=== PATIENT | female | born 1960 | race Caucasian/White ===

== ENCOUNTER → 2017-02-03 | Outpatient (CLI) | payer BC ==
--- NOTE | 2017-02-06 11:53 | MM ---
Reason for exam: screening (asymptomatic). Last mammogram was performed 1 year and 1 month ago. History: Patient is postmenopausal. Taking estrogen beginning at age 42. Taking progesterone beginning at age 42. Physical Findings: A clinical breast exam by your physician is recommended on an annual basis and results should be correlated with mammographic findings. MG Screening Mammo w CAD Bilateral CC and MLO view(s) were taken. Prior study comparison: December 24, 2015, bilateral MG screening mammo w CAD. September 17, 2014, mammogram, performed at [facility]. The breast tissue is extremely dense which could obscure a lesion on mammography. Finding #1: There is a 5 mm equal density mass in the subareolar position of the left breast. Finding #2: There are typically benign calcifications in both breasts, stable. ASSESSMENT: Incomplete: need additional imaging evaluation, BI-RAD 0 RECOMMENDATION: Ultrasound of the left breast. [facility] will attempt to contact patient to return for ultrasound.
== END | disposition home or self-care (01) ==
LOC: RADMAMWWP 11:14
PROVIDERS: ATTEND Family Medicine
DX: Z12.31 Encounter for screening mammogram for malignant neoplasm of breast (principal)

== ENCOUNTER → 2017-02-07 | Outpatient (CLI) | payer BC ==
--- NOTE | 2017-02-07 13:45 | USB ---
Reason for exam: additional evaluation requested from abnormal screening. History: Patient is postmenopausal. Taking estrogen beginning at age 42. Taking progesterone beginning at age 42. Physical Findings: Nurse did not find any significant physical abnormalities on exam. US Breast Workup LT Left breast ultrasound demonstrates a 0.4 x 0.5 x 0.4cm lesion too small to characterize at 12 o'clock. These results were verbally communicated with the patient and result sheet given to the patient on 02/07/17. ASSESSMENT: Probably benign, BI-RAD 3 RECOMMENDATION: Follow-up diagnostic mammogram and ultrasound of the left breast in 6 months.
== END | disposition home or self-care (01) ==
LOC: RADUSWWP 13:01
PROVIDERS: ATTEND Family Medicine
DX: R92.8 Other abnormal and inconclusive findings on diagnostic imaging of breast (principal)

== ENCOUNTER → 2017-08-11 | Outpatient (CLI) | payer BC ==
--- NOTE | 2017-08-11 11:18 | USB ---
Reason for exam: follow-up at short interval from prior study. History: Patient is postmenopausal. Taking estrogen beginning at age 42. Taking progesterone beginning at age 42. Physical Findings: Nurse did not find any significant physical abnormalities on exam. US Breast LT Left breast ultrasound includes all four quadrants, the retroareolar region and axilla. Finding demonstrates 0.4 x 0.5 x 0.5cm lesion too small to characterize at 12 o'clock, may be more cyst like current exam. These results were verbally communicated with the patient and result sheet given to the patient on 08/11/17. ASSESSMENT: Probably benign, BI-RAD 3 RECOMMENDATION: Ultrasound of the left breast in 6 months. Back on schedule. Return to routine screening mammogram schedule for both breasts.
== END | disposition home or self-care (01) ==
LOC: RADUSWWP 10:17
PROVIDERS: ATTEND Family Medicine
DX: R92.8 Other abnormal and inconclusive findings on diagnostic imaging of breast (principal)

== ENCOUNTER → 2017-11-13 | Outpatient (CLI) | payer BC ==
[~2017-11-13] MED LIST: SODIUM CHLORIDE 0.9% 500 ML in EMPTY BAG 1 BAG IV PRN; ZOLEDRONIC ACID 4 MG in SODIUM CHLORIDE 0.9% 100 ML IV NR; ZOLEDRONIC ACID 5 MG in SODIUM CHLORIDE 0.9% 100 ML IV ONE
[2017-11-13 08:24] VITALS: BP 114/64; PULSE 80; RESP 16; TEMP 98.7
== END | disposition home or self-care (01) ==
LOC: PROCWHC3 08:00
PROVIDERS: ATTEND Family Medicine
DX: M81.0 Age-related osteoporosis without current pathological fracture (principal); Z88.2 Allergy status to sulfonamides; Z88.5 Allergy status to narcotic agent; Z88.8 Allergy status to other drugs, medicaments and biological substances
CPT/HCPCS: 96365; J3489

== ENCOUNTER → 2018-04-27 | Outpatient (CLI) | payer BC ==
--- NOTE | 2018-04-27 10:38 | USB ---
Reason for exam: follow-up at short interval from prior study. History: Patient is postmenopausal. Taking estrogen beginning at age 42. Taking progesterone beginning at age 42. Physical Findings: Nurse did not find any significant physical abnormalities on exam. US Breast BILAT Right complete breast ultrasound includes all four quadrants, the retroareolar region and axilla. Finding demonstrates a 0.4 x 0.4 x 0.3cm oval, cystic lesion at 11 o'clock. Left complete breast ultrasound includes all four quadrants, the retroareolar region and axilla. Finding demonstrates a 0.4 x 0.3 x 0.5cm oval, mixed lesion at 12 o'clock. These results were verbally communicated with the patient and result sheet given to the patient on 04/27/18. ASSESSMENT: Probably benign, BI-RAD 3 Benign, BI-RAD 2 finding in the right breast. Probably benign, BI-RAD 3 finding in the left breast. RECOMMENDATION: Ultrasound of the left breast in 6 months.
== END | disposition home or self-care (01) ==
LOC: RADUSWWP 08:29
PROVIDERS: ATTEND Family Medicine
DX: N63.0 Unspecified lump in unspecified breast (principal)

== ENCOUNTER → 2018-10-01 | Outpatient (CLI) | payer BC ==
--- NOTE | 2018-10-01 10:20 | USB ---
Reason for exam: additional evaluation requested from abnormal screening. History: Patient is postmenopausal. Taking estrogen beginning at age 42. Taking progesterone beginning at age 42. Physical Findings: Nurse did not find any significant physical abnormalities on exam. US Breast BILAT Right complete breast ultrasound includes all four quadrants, the retroareolar region and axilla. Finding demonstrates a 0.5 x 0.3 x 0.2cm cystic lesion at 6 o'clock and a 0.5 x 0.5 x 0.3cm mixed, stable lesion at 11 o'clock. Left complete breast ultrasound includes all four quadrants, the retroareolar region and axilla. Finding demonstrates a 0.5 x 0.4 x 0.3cm mixed, stable lesion at 12 o'clock. These results were verbally communicated with the patient and result sheet given to the patient on 10/01/18. ASSESSMENT: Benign, BI-RAD 2 RECOMMENDATION: Routine screening mammogram of both breasts. (patient is due not for mammogram, patient declined to have this done at this time)
--- NOTE | 2018-10-02 13:43 | BD ---
EXAMINATION TYPE: Axial Bone Density DATE OF EXAM: 10/01/2018 COMPARISON: DEXA bone scan October 17, 2014 CLINICAL HISTORY: Postmenopausal female. Height: 62 Weight: 169.7 FRAX RISK QUESTIONS: Alcohol (3 or more units per day): no Family History (Parent hip fracture): no Glucocorticoids (More than 3mos): no (Ex: prednisone, prednisolone, methylprednisolone, dexamethasone, and hydrocortisone). History of Fracture in Adulthood: no Secondary Osteoporosis: 1. Type 1 Diabetes: no 2. Hyperthyroidism: no 3. Menopause before 45: yes 4. Malnutrition: no 5. Chronic liver disease: no Rheumatoid Arthritis: no Current Tobacco Use: yes RISK FACTORS HISTORY OF: Family History of Osteoporosis: no Active: sometimes Diet low in dairy products/other sources of calcium: yes Postmenopausal woman: age 42 Take estrogen and/or progesterone medications: yes How lon years Lost more than 2 inches in height since high school: no MEDICATIONS: estrogen, blood pressure meds, amitriptyline Additional History: EXAM MEASUREMENTS: Bone mineral densitometry was performed using the [employer] System. Bone mineral density as measured about the Lumbar spine is: ----- L1-L4(G/cm2): 1.364 T Score Values are as follows: ----- L2: 0.7 ----- L3: 2.0 ----- L4: 2.4 ----- L1-L4: 1.5 Bone mineral density has: increased 8.4 % since study of: 10.17.2014 Bone mineral density about the R hip (g/cm2): 0.994 Bone mineral density about the L hip (g/cm2): 0.946 T Score values are as follows: -----R Neck: -0.3 -----L Neck: -0.7 -----R Total: -0.3 -----L Total: -0.2 Bone mineral density has: increased 6.4 % since study of: 10.17.2014 IMPRESSION: Normal (Values between +1 and -1 indicate normal bone mass). Consider repeating this study in 5 year s or sooner if there is some new clinical indication. NOTE: T-SCORE=SD OF THE YOUNG ADULT MEAN.
== END | disposition home or self-care (01) ==
LOC: RADUSWWP 08:55
PROVIDERS: ATTEND Family Medicine
DX: N64.59 Other signs and symptoms in breast (principal); Z78.0 Asymptomatic menopausal state
CPT/HCPCS: 77080

== ENCOUNTER → 2022-05-06 | Outpatient (CLI) | payer BC ==
--- NOTE | 2022-05-06 15:56 | BD ---
EXAMINATION TYPE: Axial Bone Density DATE OF EXAM: 05/06/2022 COMPARISON: 10/01/2018 CLINICAL HISTORY: 61 years old Female. ICD-10 CODE: Z78.0 POST MENOPAUSAL WITHOUT HRT Height: 60.75 Weight: 170 FRAX RISK QUESTIONS: Alcohol (3 or more units per day): NO Family History (Parent hip fracture): NO Glucocorticoids (More than 3mos): NO (Ex: prednisone, prednisolone, methylprednisolone, dexamethasone, and hydrocortisone). History of Fracture in Adulthood: NO Secondary Osteoporosis: YES 1. Type 1 Diabetes: NO 2. Hyperthyroidism: NO 3. Menopause before 45: YES 4. Malnutrition: NO 5. Chronic liver disease: NO Rheumatoid Arthritis: NO Current Tobacco Use: YES RISK FACTORS HISTORY OF: Family History of Osteoporosis: NO Active: YES Diet low in dairy products/other sources of calcium: NO Postmenopausal woman: YES 42 Take estrogen and/or progesterone medications: YES How lon Lost more than 2 inches in height since high school: NO MEDICATIONS: Additional Medications: YES HBP EXAM MEASUREMENTS: Bone mineral densitometry was performed using the [employer] System. Bone mineral density as measured about the Lumbar spine is: ----- L1-L4(G/cm2): 1.443 T Score Values are as follows: ----- L1: 0.7 ----- L2: 1.4 ----- L3: 3.2 ----- L4: 2.9 ----- L1-L4: 2.2 Bone mineral density has: Increased 6.5% since study of: 10/01/2018 Bone mineral density about the R hip (g/cm2): 0.992 Bone mineral density about the L hip (g/cm2): 1.007 T Score values are as follows: -----R Neck: -0.5 -----L Neck: -0.3 -----R Total: -0.1 -----L Total: 0.0 Bone mineral density has: Increased 2.6% since study of: 10/01/2018 FRAX%s: The graph provided illustrates a 6.4% chance for a major osteoporotic fx and a 0.4% chance fo r the hips probability for fx in 10 years time. IMPRESSION: Normal (Values between +1 and -1 indicate normal bone mass). Consider repeating this study in 5 year s or sooner if there is some new clinical indication. NOTE: T-SCORE=SD OF THE YOUNG ADULT MEAN.
--- NOTE | 2022-05-09 09:58 | MM ---
Reason for Exam: Screening (asymptomatic). Last mammogram was performed 2 year(s) and 9 month(s) ago. Patient History: Menarche at age 11. First Full-Term at age 15. Hysterectomy at age 42. Postmenopausal. Currently using Estrogen, starting at age 42. Currently using Progesterone, starting at age 42. Risk Values: Valery 5 year model risk: 1.1%. NCI Lifetime model risk: 5.0%. Prior Study Comparison: 12/24/2015 Bilateral Screening Mammogram, [facility]. 02/03/2017 Bilateral Screening Mammogram, [facility]. 08/08/2019 Bilateral Screening Mammogram, [facility]. Tissue Density: The breast tissue is heterogeneously dense. This may lower the sensitivity of mammography. Findings: Analyzed By CAD. There is no suspicious new group of microcalcifications or new suspicious mass in either breast. Overall Assessment: Negative, BI-RAD 1 Management: Screening Mammogram of both breasts in 1 year. A clinical breast exam by your physician is recommended on an annual basis and results should be correlated with mammographic findings. Electronically signed and approved by: Den Godoy M.D.
== END | disposition home or self-care (01) ==
LOC: RADMAMWWP 13:56
PROVIDERS: ATTEND Family Medicine
DX: Z12.31 Encounter for screening mammogram for malignant neoplasm of breast (principal); Z78.0 Asymptomatic menopausal state
CPT/HCPCS: 77067; 77080

== ENCOUNTER → 2022-11-24 | Outpatient (CLI) | payer BC ==
--- NOTE | 2022-11-24 19:05 | CA ---
Transthoracic Echo Report Name: Zuri Zambrano Age: 62 Gender: F : 1960 Exam Date: 11/24/2022 11:46 Exam Location: [facility] Ht (in): 62 Wt (lb): 167 Ordering Physician: Higinio Dowd DO Attending/Referring Phys: [employer] Dolly Barrientos RDCS Procedure CPT: Indications: Z82.49 FAMILY HX OF ISCHEM HEART DIS AND OTH DIS O Cardiac Hx: Technical Quality: Good Contrast 1: Total Dose (mL): Contrast 2: Total Dose (mL): MEASUREMENTS (Male / Female) Normal Values 2D ECHO LV Diastolic Diameter PLAX 3.9 cm 4.2 - 5.9 / 3.9 - 5.3 cm LV Systolic Diameter PLAX 2.5 cm IVS Diastolic Thickness 0.9 cm 0.6 - 1.0 / 0.6 - 0.9 cm LVPW Diastolic Thickness 0.9 cm 0.6 - 1.0 / 0.6 - 0.9 cm LV Relative Wall Thickness 0.5 RV Internal Dim ED PLAX 3.1 cm LVOT Diameter 3.2 cm LA Systolic Diameter LX 2.9 cm 3.0 - 4.0 / 2.7 - 3.8 cm M-MODE Aortic Root Diameter MM 3.0 cm AV Cusp Separation MM 1.9 cm DOPPLER AV Peak Velocity 106.0 cm/s AV Peak Gradient 4.5 mmHg AI Peak Velocity 185.7 cm/s AI Peak Gradient 13.8 mmHg AI Pressure Half Time 2375.3 ms Mitral E Point Velocity 79.9 cm/s Mitral A Point Velocity 85.1 cm/s Mitral E to A Ratio 0.9 MV Deceleration Time 235.6 ms MV E' Velocity 12.4 cm/s Mitral E to MV E' Ratio 6.4 TR Peak Velocity 190.9 cm/s TR Peak Gradient 14.6 mmHg Right Ventricular Systolic Press 24.7 mmHg FINDINGS Left Ventricle Left ventricular ejection fraction is estimated at 55-60 %. Left ventricular cavity size normal. Left ventricular wall thickness normal. Right Ventricle Normal right ventricular size and function. Right ventricular systolic pressure within normal limits. Right Atrium Normal right atrial size. Left Atrium Normal left atrial size. Mitral Valve Structurally normal mitral valve. Trace mitral regurgitation. Aortic Valve Trileaflet aortic valve. Thickened aortic valve without stenosis. Tricuspid Valve Structurally normal tricuspid valve. Mild tricuspid regurgitation. Pulmonic Valve Structurally normal pulmonic valve. No pulmonic regurgitation. Pericardium Normal pericardium. No pericardial effusion. Aorta Normal size aortic root and proximal ascending aorta. CONCLUSIONS Normal LV systolic function Previewed by: Dr. Kaz Britton MD (Electronically Signed) Final Date: 24 Nov 2022 19:04
== END | disposition home or self-care (01) ==
LOC: RADECHMAIN 11:32
PROVIDERS: ATTEND Family Medicine
DX: I07.1 Rheumatic tricuspid insufficiency (principal); Z82.49 Family history of ischemic heart disease and other diseases of the circulatory system
CPT/HCPCS: 93306

== ENCOUNTER → 2024-03-06 | Outpatient (CLI) | payer BC ==
--- NOTE | 2024-03-06 09:57 | XR ---
EXAMINATION TYPE: XR chest 2V DATE OF EXAM: 03/06/2024 COMPARISON: NONE TECHNIQUE: PA and lateral views submitted. HISTORY: COPD FINDINGS: The lungs are clear and there is no pneumothorax, pleural effusion, or focal pneumonia. Heart size normal and no overt failure. Osseous structures demonstrate hypertrophic and degenerative changes of the spine. Hyperinflation compatible COPD. Surgical clips in the abdomen. Atherosclerotic change aort a. IMPRESSION: 1. No acute process. 2. Diffuse emphysematous changes.
== END | disposition home or self-care (01) ==
LOC: RADXRMAIN 09:27
PROVIDERS: ATTEND Family Medicine
DX: J44.9 Chronic obstructive pulmonary disease, unspecified
CPT/HCPCS: 71046

== ENCOUNTER → 2024-08-05 | Outpatient (CLI) | payer MEDICARE, BC ==
--- NOTE | 2024-08-05 08:44 | BD ---
EXAMINATION TYPE: Axial Bone Density DATE OF EXAM: 08/05/2024 CLINICAL HISTORY: 64 years old Female. ICD-10 CODE: Z78.0 ASYMPTOMATIC MENOPAUSAL STA , Additional H istory: Height: 61 Weight: 150 FRAX RISK QUESTIONS: Alcohol (3 or more units per day): no Family History (Parent hip fracture): no Glucocorticoids (More than 3mos): no (Ex: prednisone, prednisolone, methylprednisolone, dexamethasone, and hydrocortisone). History of Fracture in Adulthood: no Secondary Osteoporosis: 1. Type 1 Diabetes: no 2. Hyperthyroidism: no 3. Menopause before 45: yes 4. Malnutrition: no 5. Chronic liver disease: no Rheumatoid Arthritis: no Current Tobacco Use: yes RISK FACTORS HISTORY OF: Hip Fracture (Right/Left): no Spine Fracture: no History of Wrist Fracture: no Surgery to Spine/Hip(right/left)/Wrist (right/left): no MEDICATIONS: Thyroid Medications: no Osteoporosis Medications: no EXAM MEASUREMENTS: Bone mineral densitometry was performed using the [employer]. Bone mineral density as measured about the Lumbar spine is: ----- L1-L4(G/cm2): 1.553 T Score Values are as follows: ----- L1: 1.6 ----- L2: 2.8 ----- L3: 3.5 ----- L4: 4.2 ----- L1-L4: 3.1 Z Score Values are as follows: ----- L1: 3.1 ----- L2: 4.3 ----- L3: `5.0 ----- L4: 5.7 ----- L1-L4: 4.6 Bone mineral density has: increased 7.6 % since study of: 05/06/2022 Bone mineral density about the R hip (g/cm2): 1.002 Bone mineral density about the L hip (g/cm2): 1.041 T Score values are as follows: -----R Neck: -0.4 -----L Neck: -0.1 -----R Total: 0.0 -----L Total: 0.3 Z Score values are as follows: -----R Neck: 1.0 -----L Neck: 1.3 -----R Total: 1.1 -----L Total: 1.4 Bone mineral density has: increased 2.2 % since study of: 05/06/2022 FRAX%s: The graph provided illustrates a 6.8% chance for a major osteoporotic fx and a 0.5% chance fo r the hips probability for fx in 10 years time. IMPRESSION: Normal (Values between +1 and -1 indicate normal bone mass). Consider repeating this study in 5 year s or sooner if there is some new clinical indication. NOTE: T-SCORE=SD OF THE YOUNG ADULT MEAN. [facility], , 08/05/2024 8:42 AM
--- NOTE | 2024-08-05 09:28 | MM ---
Reason for Exam: Screening (asymptomatic). Last mammogram was performed 2 year(s) and 3 month(s) ago. Patient History: Menarche at age 11. First Full-Term at age 15. Hysterectomy at age 42. Postmenopausal. Currently using Estrogen, starting at age 42. Currently using Progesterone, starting at age 42. Risk Values: Valery 5 year model risk: 1.2%. NCI Lifetime model risk: 4.6%. Prior Study Comparison: 02/03/2017 Bilateral Screening Mammogram, [facility]. 08/08/2019 Bilateral Screening Mammogram, [facility]. 05/06/2022 Bilateral MG screening mammo w CAD, [facility]. Tissue Density: The breasts are heterogeneously dense, which may obscure small masses. Findings: Analyzed By CAD. There is no suspicious group of microcalcifications or new suspicious mass in either breast. Overall Assessment: Negative, BI-RAD 1 Management: Screening Mammogram of both breasts in 1 year. . Patient should continue monthly self-breast exams. A clinical breast exam by your physician is recommended on an annual basis. This exam should not preclude additional follow-up of suspicious palpable abnormalities. Note on Valery scores and lifetime risk: 1. A Valery score greater than 3% is considered moderate risk. If this is the case, consider specialist referral to assess eligibility for a risk reducing agent. 2. If overall lifetime risk for the development of breast cancer is 20% or higher, the patient may qualify for future screening with alternating mammogram and breast MRI. [facility], , 08/05/2024 9:25 AM. Electronically signed and approved by: Den Godoy M.D.
== END | disposition home or self-care (01) ==
LOC: RADMAMWWP 08:08
PROVIDERS: ATTEND Family Medicine
DX: Z12.31 Encounter for screening mammogram for malignant neoplasm of breast (principal); R92.333 Mammographic heterogeneous density, bilateral breasts; M85.89 Other specified disorders of bone density and structure, multiple sites; Z78.0 Asymptomatic menopausal state
CPT/HCPCS: 77067; 77080